=== PATIENT | male | born 1975 | race Two or more races ===

== ENCOUNTER 2017-05-27 21:58 | Emergency (ER) | payer OTHER ==
[~2017-05-27] VITALS: Ht 190.5 cm; Wt 139.7 kg
[2017-05-27 23:33] VITALS: BP 120/48
[2017-05-27] MEDS ORDERED: IBUPROFEN 600 MG TAB PO ONE (23:45)
[2017-05-27] MEDS ORDERED: BACLOFEN 10 MG TAB PO ONE (23:45)
== END 2017-05-28 00:52 | disposition home or self-care (01) ==
LOC: ER 21:58
DX: S30.1XXA Contusion of abdominal wall, initial encounter (principal); S30.811A Abrasion of abdominal wall, initial encounter; V43.52XA Car driver injured in collision with other type car in traffic accident, initial encounter; Y93.89 Activity, other specified; Y92.410 Unspecified street and highway as the place of occurrence of the external cause; Y99.8 Other external cause status
CPT/HCPCS: 74176